=== PATIENT | female | born 1970 | race African-American/Black ===

== ENCOUNTER 2017-02-03 22:12 | Emergency (ER) | payer OTHER ==
[~2017-02-03] VITALS: Ht 162.6 cm; Wt 60.5 kg
[~2017-02-03 22:12] MED LIST: ALBU8.5H3; OSLT75C PO; PRED20TA PO; TRAM50TA2 PO
[2017-02-03 22:14] VITALS: Ht 162.6 cm; Wt 60.5 kg
--- NOTE | 2017-02-03 22:31 | ERA ---
ER Documentation Chief Complaint Date/Time DATE: 02/03/17 TIME: 22:30 Chief Complaint Right shoulder pain HPI The patient is a 47-year-old female, presenting to the ER because of right shoulder pain when she is like up this morning, she took Motrin with good relief. Last meal was about an hour prior to arrival, she denies any trauma, neck pain, chest pain, dyspnea, abdominal pain, vomiting, dysuria, diarrhea. She drinks socially, denies smoking Past medical history: Asthma, history of previous right shoulder dislocation Past surgical history: Right knee arthroscopy, left ulnar nerve surgery, tonsillectomy ROS All systems reviewed and are negative except as per history of present illness. Medications Home Meds Active Scripts Ibuprofen* (Motrin*) 600 Mg Tab, 600 MG PO Q6H Y for PAIN AND OR ELEVATED TEMP, #20 TAB Prov:JARROD NOLASCO MD 02/04/17 Reported Medications Ibuprofen* (Ibuprofen*) 200 Mg Capsule, 600 MG PO QID Y for PAIN, CAP 02/03/17 Albuterol Sulfate* (Proair HFA*) 8.5 Gm Hfa.aer.ad 04/23/13 Discontinued Scripts Prednisone* (Prednisone*) 20 Mg Tab, 40 MG PO DAILY for 4 Days, TAB Prov:FAMILIA PORTER PA-C 07/30/16 Oseltamivir Phosphate* (Tamiflu*) 75 Mg Capsule, 75 MG PO BID for 5 Days, CAP Prov:FAMILIA PORTER PA-C 07/30/16 Tramadol HCl (Tramadol HCl) 50 Mg Tablet, 50 MG PO Q6 Y for PAIN, #20 TAB Prov:JARROD NOLASCO MD 11/20/15 Allergies Allergies: Coded Allergies: No Known Allergy (Verified , 02/03/17) PMhx/Soc History of Surgery: Yes (knee x2, left arm x 2, tonsilectomy) Anesthesia Reaction: No Hx Neurological Disorder: No Hx Respiratory Disorders: Yes (asthma) Hx Cardiac Disorders: No Hx Psychiatric Problems: No Hx Miscellaneous Medical Probl: No Hx Alcohol Use: No Hx Substance Use: No Hx Tobacco Use: No Physical Exam Vitals Vital Signs Date Time Temp Pulse Resp B/P Pulse Ox O2 Delivery O2 Flow Rate FiO2 02/04/17 00:36 98.2 65 20 125/84 100 Room Air 02/03/17 22:31 98.2 77 20 128/90 100 Room Air 02/03/17 22:14 98.2 81 20 133/75 100 Physical Exam Const: No acute distress. Head: Atraumatic. Eyes: Normal Conjunctiva. ENT: Normal External Ears, Nose and Mouth. Neck: Full range of motion. No meningismus. Resp: Clear to auscultation bilaterally. Cardio: Regular rate and rhythm. Abd: Soft, non distended, normal bowel sounds, non tender. Skin: No petechiae or rashes. Back: No midline or flank tenderness. Ext: Minimal and vague right shoulder tenderness, no erythema, no crepitus, no ecchymosis Neur: Awake and alert. No focal deficit Psych: Normal Mood and Affect. Results 24 hrs Current Medications Medications (Trade) Dose Ordered Sig/Chuck Route PRN Reason Start Time Stop Time Status Last Admin Dose Admin Acetaminophen/ Hydrocodone Bitart ([place] (10/325)) 1 tab ONCE ONCE PO 02/04/17 00:00 02/04/17 00:01 Cancel Ondansetron HCl (Zofran Odt) 4 mg ONCE STAT ODT 02/03/17 23:40 02/03/17 23:41 Cancel Ibuprofen (Motrin) 600 mg ONCE ONCE PO 02/04/17 00:00 02/04/17 00:01 DC 02/03/17 23:53 Procedures/[place] [address] Radiology Main Line: [phone] DIAGNOSTIC IMAGING REPORT Patient: JOSE M FERNANDO : 1970 Age: 47 Sex: F MR #: [id number] DOS: 02/03/17 2233 Ordering MD: JARROD NOLASCO MD Location: E/R Room/Bed: PROCEDURE: RIGHT SHOULDER CLINICAL INDICATION: 47-year-old female with right shoulder pain. TECHNIQUE: Three views of the right shoulder were obtained. The images reviewed on a PACS workstation. COMPARISON: None. FINDINGS: No evidence of fracture or dislocation is seen. The glenohumeral and acromioclavicular joint spaces appear preserved. Limited views of the clavicle and thorax are within normal limits. IMPRESSION: Unremarkable right shoulder radiographs. .Kennedy Sr MD, Date Time Electronically viewed and signed by .Kennedy Sr MD, on 02/04/2017 00:05 .M/ CC: JARROD NOLASCO MD MEDICAL MAKING DECISION: The patient is a 47-year-old female, presenting with acute right shoulder pain of unclear etiology. She only wanted Motrin which was given to her with good response The differential diagnoses considered include but are not limited to fracture, contusion, sprain, internal derangement Departure Diagnosis: Primary Impression: Right shoulder pain Condition: Good Comments She was discharged with Motrin I discussed the findings with the patient. I advised the patient to follow-up with the primary physician in about 5-7 days, sooner if needed and return if any concern. She was advised that if the pain is persistent, she would need MRI for further evaluation The patient's blood pressure was elevated (>120/80) but appears stable without evidence of hypertension emergency or urgency. The patient was counseled about the risks of hypertension and urged to pursue outpatient monitoring and therapy within a week with their primary care physician. JARROD NOLASCO MD Feb 03, 2017 22:30
[2017-02-03] MEDS ORDERED: IBUP200C PO (23:19)
[2017-02-03] MEDS ORDERED: ONDANSETRON (ODT) 4 MG TAB ODT STA (23:40)
[2017-02-04] MEDS ORDERED: IBUPROFEN 600 MG TAB PO ONE
[2017-02-04] MEDS ORDERED: HYDROCODONE/APAP (10/325) TAB PO ONE
--- NOTE | 2017-02-04 00:06 | RADRPT ---
PROCEDURE: RIGHT SHOULDER CLINICAL INDICATION: 47-year-old female with right shoulder pain. TECHNIQUE: Three views of the right shoulder were obtained. The images reviewed on a PACS workstat ion. COMPARISON: None. FINDINGS: No evidence of fracture or dislocation is seen. The glenohumeral and acromioclavicular joint spaces appear preserved. Limited views of the clavicle and thorax are within normal limits. IMPRESSION: Unremarkable right shoulder radiographs. .Kennedy Sr MD, MD Date Time Electronically viewed and signed by .Kennedy Sr MD, on 02/04/2017 00:05 .M/
[2017-02-04] MEDS ORDERED: IBUP-1542 PO (00:31)
[2017-02-04 00:36] VITALS: BP 125/84; PULSE 65; RESP 20; TEMP 98.2
== END 2017-02-04 00:37 | disposition home or self-care (01) ==
LOC: E/R 22:12
DX: M25.511 Pain in right shoulder (principal); J45.909 Unspecified asthma, uncomplicated
CPT/HCPCS: 73030; Z7502; Z7610

== ENCOUNTER 2018-01-25 16:13 | Emergency (ER) | END 2018-01-25 16:57 | disposition home or self-care (01) ==